=== PATIENT | male | born 1980 | race Caucasian/White ===

== ENCOUNTER 2018-09-09 10:35 | Emergency (ER) | payer SELFPAY ==
[2018-09-09] MEDS: IBUPROFEN 600 MG TAB PO (10:59)
== END 2018-09-09 12:10 | disposition home or self-care (01) ==
LOC: FTE 10:35
DX: S13.9XXA Sprain of joints and ligaments of unspecified parts of neck, initial encounter (principal); R07.9 Chest pain, unspecified; V89.2XXA Person injured in unspecified motor-vehicle accident, traffic, initial encounter
CPT/HCPCS: 71045; 72040; 73562; 99284-25